=== PATIENT | female | born 1940 | race Asian ===

== ENCOUNTER 2018-04-26 11:52 | Outpatient (CLI) | payer OTHER | END 2018-04-26 23:30 | disposition home or self-care (01) | LOC: US 11:52 | DX: M79.662 Pain in left lower leg (principal); R60.0 Localized edema; R27.9 Unspecified lack of coordination ==

== ENCOUNTER 2018-04-29 10:44 | Outpatient (CLI) | payer OTHER | END 2018-04-29 19:35 | disposition home or self-care (01) | LOC: US 10:44 | DX: R60.0 Localized edema (principal); R20.0 Anesthesia of skin; R26.2 Difficulty in walking, not elsewhere classified ==

== ENCOUNTER 2018-06-14 13:35 | Emergency (ER) | payer OTHER ==
[~2018-06-14] VITALS: Ht 157.5 cm; Wt 78.0 kg
[2018-06-14 14:57] LABS: PLATELET COUNT 314 K/uL (152-353)
[2018-06-14 15:10] LABS: POTASSIUM 4.1 mmol/L (3.6-5.2); SODIUM 135 mmol/L (136-145)
[2018-06-14 18:30] VITALS: BP 132/56; TEMP 98.1
== END 2018-06-14 18:30 | disposition home or self-care (01) ==
LOC: ED 13:35
DX: G45.8 Other transient cerebral ischemic attacks and related syndromes (principal); E11.9 Type 2 diabetes mellitus without complications
CPT/HCPCS: 36415; 80053; 81000; 82550; 82553; 83036; 84484; 85027; 93005; 99283

== ENCOUNTER 2018-06-22 09:16 | Outpatient (CLI) | payer OTHER ==
[~2018-06-22] VITALS: Ht 157.5 cm; Wt 77.6 kg
== END 2018-06-22 22:22 | disposition home or self-care (01) ==
LOC: NM 09:16
DX: R94.31 Abnormal electrocardiogram [ECG] [EKG] (principal); R09.89 Other specified symptoms and signs involving the circulatory and respiratory systems
CPT/HCPCS: 93225; 93306; A9500; J2785

== ENCOUNTER 2018-07-13 06:45 | Outpatient (CLI) | payer OTHER | END 2018-07-13 22:07 | disposition home or self-care (01) | LOC: CT 06:45 → RESP 09:00 → CT 22:07 | DX: R60.0 Localized edema (principal); E11.40 Type 2 diabetes mellitus with diabetic neuropathy, unspecified; D17.5 Benign lipomatous neoplasm of intra-abdominal organs | CPT/HCPCS: 36415; 82565; 84520; 95885; 95910; Q9963 ==

== ENCOUNTER 2018-08-17 10:04 | Emergency (ER) | payer OTHER ==
[~2018-08-17] VITALS: Ht 157.5 cm; Wt 77.6 kg
[2018-08-17 10:39] LABS: PLATELET COUNT 293 K/uL (152-353)
[2018-08-17 10:42] LABS: POTASSIUM 3.7 mmol/L (3.6-5.2)
[2018-08-17 11:17] LABS: PARTIAL THROMBOPLASTIN TIME 25.7 SECONDS (24.5-33.6)
[2018-08-17 12:59] VITALS: BP 138/60; TEMP 97.8
== END 2018-08-17 13:00 | disposition home or self-care (01) ==
LOC: ED 10:04
PROVIDERS: Family Medicine
DX: G45.9 Transient cerebral ischemic attack, unspecified (principal); E11.65 Type 2 diabetes mellitus with hyperglycemia
CPT/HCPCS: 36415; 80053; 81000; 82962; 85027; 85610; 85730; 99283

== ENCOUNTER 2019-08-15 10:34 | Outpatient (CLI) | payer OTHER | END 2019-08-15 19:25 | disposition home or self-care (01) | LOC: US 10:34 | DX: R79.89 Other specified abnormal findings of blood chemistry (principal) ==

== ENCOUNTER 2021-12-12 10:56 | Outpatient (CLI) | payer OTHER | END 2021-12-12 19:03 | disposition home or self-care (01) | LOC: RAD 10:56 | PROVIDERS: ATTEND Nurse Practitioner Family | DX: M25.551 Pain in right hip (principal); M25.552 Pain in left hip ==

== ENCOUNTER 2023-03-18 10:03 | Outpatient (CLI) | payer OTHER | END 2023-03-18 18:57 | disposition home or self-care (01) | LOC: LABW 10:03 | PROVIDERS: ATTEND Nurse Practitioner Family | DX: D64.89 Other specified anemias (principal) | CPT/HCPCS: 82272 ==